=== PATIENT | male | born 1995 | race Caucasian/White ===

== ENCOUNTER 2016-11-27 14:59 | Emergency (ER) | payer OTHER ==
[~2016-11-27] VITALS: Ht 177.8 cm; Wt 88.0 kg
[~2016-11-27 14:59] MED LIST: AMOXICILLIN AND1 TA2 PO
[2016-11-27] MEDS ORDERED: CLARITIN-D 10 M1 T24 PO (15:25)
[2016-11-27] MEDS ORDERED: FLONASE 50 MCG16 GM (15:25)
[2016-11-27 15:26] VITALS: BP 140/84
--- NOTE | 2016-11-27 15:26 | Urgent Treatment Center Report ---
History of Present Issue Date/Time Seen by Provider 11/27/16 1511 Visit Reason Pt arrived:Walked Presenting Problem:PT HAS LT EAR PAIN X 2 weeks ONLY AT NIGHT. Location if Accident: Onset of symptoms date/time:/ or onset unknown for:MEDICAL HX UNKNOWN Have you (or family members/close friends) recently traveled outside the [place]? N If Yes, where/when: Have you had exposure to infectious disease within the past month? TB? Other? Specify: Here w/ mom c/o left ear pain x 2 weeks. Pain only at night. The worst first thing in the morning but once upright, symptoms resolve. One week ago, left ear tender to touch. Figured due to ear buds and didn't pay much attention. Resolved. Denies ear drainage or changes in hearing. Has noticed more popping lately. "Like I need to pressurize my ears". Hasn't taken or tried anything at all for symptoms over the last 2 weeks. No fever. No known sick contacts. Source patient, family Exam Limitations no limitations ALLERGIES Coded Allergies: No Known Allergies (09/08/15) History Medical History General CAD? No Angina: No VA: No Hypertension? No Hyperlipidemia? No CHF? No DVT? No PE? No COPD? No Asthma? Yes Anemia? No GERD? No Gastric ulcers? No GI Bleed? No Hernia? No Thyroid Problems? No Hypothyroidism? No CVA? No Seizures? No Diabetes? No Renal Insuffiency? No UTI? No Stones? No BPH? No GB Disease: No Nephritic Syndrome? No Asplenia? No Hepatitis? No Sickle Cell Disease? No Arthritis? No Migraines? No Cataracts? No Glaucoma? No MRSA? No HIV? No TB? No Anxiety? No Depression? No Cancer? No More? No Immunization HX DT/Tetanus Unknown Surgical Hx Previous Surgery?Y Ear tubes FEMUR FRACTURE -JESSIE FINGER SURGERY Family History Family HX Diabetes Yes Hypertension Yes Cancer Yes TB No Social History Smoking Hx Smoker: Never Smoker Tobacco: No Alcohol Alcohol: No Review of Systems All Other Systems Reviewed and Negative Constitutional see HPI, denies fever, denies malaise Eyes denies drainage ENT denies: nose discharge, nose congestion, throat pain. Respiratory denies cough Gastrointestinal denies nausea Musculoskeletal denies neck pain Skin denies lesions, denies rash Psychiatric/Neurological denies headache, denies other (dizziness) Physical Exam Vital Signs Vital Signs Date Time Temp Pulse Resp B/P Pulse O2 O2 Flow FiO2 Ox Delivery Rate 11/27 1505 97.8 71 20 140/84 98 General Appearance normal appearance, no apparent distress Ear, Nose, Throat normal ENT inspection (x/ clear fluid behind left TM) Neck non-tender, supple Respiratory Status No: respiratory distress, productive cough, non productive cough. Lung Sounds anterior: lungs clear. posterior: lungs clear. bilateral: lungs clear. Cardiovascular regular rate/rhythm, no peripheral edema, no murmur Neurologic alert, oriented x 3 Mental status normal mood/affect Skin normal color, warm/dry Lymphatic no adenopathy Medical Decision Making LABS/Meds/Orders Pt receiving controlled substance in ED? No Departure Departure Time of Disposition 1521 Disposition DC Home or Self Care(routine) Clinical Impression Primary Impression: Left serous otitis media Qualifiers: Chronicity: acute Recurrence: not specified as recurrent Qualified Code: H65.02 - Acute serous otitis media, left ear Condition STABLE Referrals Ferny ARRIAZA,Manny (Family) Immediately for new, worsening or persistant symptoms Patient Instructions DI for Eustachian Tube Dysfunction-Adult Additional Instructions Serous otitis is a result of excess fluid behind your ear drum Claritin and sudafed or Claritin D help to "dry up" that excess fluid Flonase used 2 sprays each nostril daily helps to ensure eustachian tube open to allow fluid to drain as it normally would Ibuprofen as needed for pain unfortunately this doesn't iimprove immediately. FU for ANY new or worsening symptoms. Allow 5-7 days and if not improving, return for follow up as other medication may be necessary. Sleep elevated. Discharge Counseling Counseled pt/family regarding diagnosis, medications/RX, home care, follow up needs Prescriptions Current Visit Scripts LORATADINE/PSEUDOEPHEDRINE (Claritin-D 24 Hour Tablet) 1 T24 PO DAILY #14 T24 wants to use flex spending Fluticasone Propionate (Flonase 50 Mcg Nasal [place]) 2 SPRAY NA DAILY #1 BOT at 6828
--- OUTSIDE RECORDS SUMMARY | 2016-12-05 14:36 | External Medical Summary Rpt | CCD ---
Author Author , SHAHIDA Organization SHAHIDA Address Unknown Phone [email or web address] Care Team Providers Care Lift Team Technician Name Role Phone Venessa Rodriguez MD, Unavailable Unavailable Venessa Rodriguez MD Purpose Continuity of Care Document - 02-17-2013 through 2016 Problems Code Diagnosis DOS Provider Status 873.43 873.43 OPEN 02-17-2013 Khai WOUND OF [facility] E849.0 E849.0 02-17-2013 Khai ACCIDENT IN [facility] E906.0 E906.0 DOG 02-17-[address] [facility] V06.5 V06.5 02-17-2013 [place] TETANUS-DIP [facility] [TD][DT] Allergies, Adverse Reactions, Alerts Type Allergy to substance Adverse Reaction to Substance Substance Reaction Severity INGREDIENT: NO KNOWN Unknown Unknown - NO KNOWN DRUG ALLERGY Medications Na ND Rx Da Fi Fi Am Da Di Ph RX Ph St me C No te ll ll ou ys ag ar # ys at rm s nt no ma ic us Or Da si cy ia de te s n re d AM 66 12 0 No OX 68 -2 -C 51 5- Lo LA 00 20 ng V 20 13 er 50 0 0- Ac 12 ti 5 ve MG TA BL ET AD 49 12 0 No AC 28 -2 EL 10 5- Lo 40 20 ng TD 01 13 er AP 0 Ac ti AL ve Vital Signs 02-17-2013 00:27 Name Value Interpretat Reference Comment ion Range BP 88 mm[Hg] Diastolic BP Systolic 155 mm[Hg] Heart 74 /min Rate/Pulse O2% 98 % Respiratory 16 /min Rate 02-17-2013 00:18 Name Value Interpretat Reference Comment ion Range BP 88 mm[Hg] Diastolic BP Systolic 152 mm[Hg] Heart 99 /min Rate/Pulse O2% 98 % Respiratory 16 /min Rate Encounters Encounter Start End Date Code Location Performer Type Date Emergency MALVIN Rodriguez MD (ER) 3 00:14 3 00:30 [facility]
--- OUTSIDE RECORDS SUMMARY | 2016-12-05 14:36 | External Medical Summary Rpt | CCD ---
Demographics Preferred Language Turkish Marital Status Unknown Holiness Affiliation Unknown Race Unknown Ethnic Group Unknown Author Author SHAHIDA Address Unknown Phone Immunization No patient found.
--- OUTSIDE RECORDS SUMMARY | 2016-12-05 14:36 | External Medical Summary Rpt ---
Author Author SHAHIDA Liang, [employer] Organization [employer] Address Unknown Phone Unavailable
--- OUTSIDE RECORDS SUMMARY | 2016-12-05 14:36 | External Medical Summary Rpt | CCD ---
Author Author [employer] Organization [employer] Address Unknown Phone Unavailable Purpose Continuity of Care Document - through 2016
--- OUTSIDE RECORDS SUMMARY | 2016-12-05 14:36 | External Medical Summary Rpt | CCD ---
Author Author , SHAHIDA Organization SHAHIDA Address Unknown Phone [email or web address] Care Team Providers Care Bar Pilot Name Role Phone Venessa Rodriguez MD, Unavailable Unavailable Venessa Rodriguez MD Purpose Continuity of Care Document - 02-17-2013 through 2016 Problems Code Diagnosis DOS Provider Status 873.43 873.43 OPEN 02-17-2013 Khai WOUND OF [facility] E849.0 E849.0 02-17-2013 Khai ACCIDENT IN [facility] E906.0 E906.0 DOG 02-17-2013 Khai BITE [facility] V06.5 V06.5 02-17-2013 [place] TETANUS-DIP [facility] [TD][DT] Allergies, Adverse Reactions, Alerts Type Allergy [...] Rodriguez MD (ER) 3 00:14 3 00:30 [facility]
--- OUTSIDE RECORDS SUMMARY | 2016-12-05 14:36 | External Medical Summary Rpt | CCD ---
Demographics Preferred Language Yakut Marital Status Unknown Advent Affiliation Unknown Race Unknown Ethnic Group Unknown Author Author SHAHIDA Address Unknown Phone Immunization No patient found.
== END 2016-11-27 15:28 | disposition home or self-care (01) ==
LOC: UTC 14:59
DX: H65.02 Acute serous otitis media, left ear (principal); J45.909 Unspecified asthma, uncomplicated